=== PATIENT | female | born 1960 | race Caucasian/White ===

== ENCOUNTER → 2017-02-03 | Outpatient (CLI) | payer OTHER | END | disposition home or self-care (01) | LOC: C.LAB 22:09 | DX: Z02.83 Encounter for blood-alcohol and blood-drug test (principal) ==

== ENCOUNTER → 2017-06-24 | Outpatient (CLI) | payer OTHER ==
--- NOTE | 2017-06-24 07:26 | DIAGNOSTIC IMAGING REPORT ---
MR ANGIOGRAPHY OF THE [place] OF [place] NO CONTRAST CLINICAL HISTORY: INTRACRANIAL ANEURYSM COMPARISON STUDY: Outside report from August radiographic study performed [facility] dated 08/18/2016 A 3-D [id number] MR angiographic sequence of the [place] was performed. Both the source and projection images were reviewed. There is no flow within the right A1 segment. There is marked diminished flow within the cavernous portion of the right internal carotid artery. There is a dominant left vertebral. There is a 2.5 mm aneurysm arising from the inferior aspect of the right anterior cerebral artery. There is a 3 mm aneurysm at the origin of the left posterior communicating artery. There is an equivocal 2 mm aneurysm arising from the left posterior posterior cerebral artery. There is a 2 mm aneurysm in the region of the left middle cerebral artery bifurcation. IMPRESSION: 1. Markedly diminished flow within the cavernous portion of the right internal carotid artery 2. No flow within the right A1 segment 3. 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 3 mm aneurysm/infundibulum at the origin left posterior communicating artery 5. Equivocal 2 mm aneurysm arising from the posterior aspect of the left posterior cerebral artery 6. 2 mm aneurysm in the region the left middle cerebral artery bifurcation Electronically signed by: Vivek Gonzalez M.D. 06/24/2017 7:24 AM Dictated Date/Time: 06/24/2017 7:09 AM
== END | disposition home or self-care (01) ==
LOC: C.MRI 06:23
PROVIDERS: ATTEND Family Medicine
DX: I67.1 Cerebral aneurysm, nonruptured (principal)

== ENCOUNTER 2023-03-27 09:44 | Inpatient (IN) ==
[2023-03-27] MEDS ORDERED: SODIUM CHLORIDE 0.9% 1000ML 1,000 ML IV ONE (10:20)
[2023-03-27] MEDS ORDERED: ONDANSETRON INJ 2 MG/ML 2 ML VIAL IV STA (10:20)
[2023-03-27] MEDS ORDERED: FAMOTIDINE 20MG IV PUSH 20 MG/5 ML SYR IV STA (10:20)
[2023-03-27 11:26] LABS: Albumin Globulin Ratio 2.1 (0.9-2); Albumin Level 3.5 gm/dl (3.4-5.0); BUN Creatinine Ratio 21.9 (10-20); Bilirubin Direct 0.1 mg/dl (0-0.2); Bilirubin,Total 0.4 mg/dl (0.2-1.0); Calcium 8.3 mg/dl (8.6-10.3); Creatinine Clr Calc Pharmacy 72.1 ml/min; Est GFR (African American) 110.8 ml/min; Est GFR (Non-African American) 95.6 ml/min; Globulin 1.7 gm/dl (2.5-4.0); Hematocrit (blood only) 19.4 % (37.0-47.0); Hemoglobin 6.6 g/dl (12.0-16.0); Mean Corpuscular Volume 94.2 fL (80.0-100.0); Mean Platelet Volume 10.8 fL (9.4-12.4); Platelet Count 149 K/uL (130-400); Potassium 3.6 mmol/L (3.5-5.1); RDW Coefficient of Variation 12.4 % (11.5-14.5); Red Blood Count 2.06 M/uL (4.20-5.40); Total Protein 5.2 gm/dl (6.0-8.3); White Blood Count 3.88 K/ul (4.8-10.8)
[2023-03-27 11:36] LABS: Appearance Urine Clear (Clear); Bacteria Urine Automated Negative (Negative); Bilirubin Urine Negative (Negative); Blood Urine Negative (Negative); Color Urine Yellow; Epithelial Cell Urine Auto >30 /lpf (0-5); Glucose Urine UA Negative (Negative); Ketones Urine Trace (Negative); Leukocyte Esterase Urine 2+ (Negative); Nitrite Urine Negative (Negative); Protein Urine Negative (Negative); RBC Urine Automated 0-4 /hpf (0-4); Specific Gravity Urine 1.015 (1.000-1.030); Urobilinogen Urine Negative (Negative); pH Urine 5.5 (4.5-7.5)
[2023-03-27 11:44] LABS: Prothrombin Time 11.4 Seconds (9.0-12.0)
[2023-03-27 11:45] LABS: Basophils # (auto) 0.02 K/uL (0-0.2); Basophils % (auto) 0.5 %; Eosinophils # (auto) 0.07 K/uL (0-0.50); Eosinophils % (auto) 1.8 %; Immature Granulocytes # (auto) 0.02 K/uL (0.01-0.20); Immature Granulocytes % (auto) 0.5 %; Lymphocytes # (auto) 1.39 K/uL (1.2-3.4); Lymphocytes % (auto) 35.8 %; Monocytes # (auto) 0.31 K/uL (0.11-0.59); Neutrophils # (auto) 2.07 K/uL (1.40-6.50); Neutrophils % (auto) 53.4 %; RBC Morphology Unremarkable
[2023-03-27] MEDS ORDERED: OPTIRAY 320 100ml IV ONE (11:59)
[2023-03-27] MEDS ORDERED: SODIUM CHLORIDE 0.9% 250 ML IV PRN (12:07)
[2023-03-27] MEDS ORDERED: PANTOprazole 80 MG in DEXTROSE 5% 100 ML IV ONE (12:07)
[2023-03-27] MEDS ORDERED: PANTOPRAZOLE BOLUS/DRIP 1 EACH IV STA (12:07)
[2023-03-27 12:29] LABS: INR 1.1 (0.9-1.1); Prothrombin Time 11.7 Seconds (9.0-12.0)
--- NOTE | 2023-03-27 12:34 | CT Scan Report ---
ABDOMEN AND PELVIS CT WITH IV CONTRAST CT DOSE: 446.17 mGy.cm HISTORY: Acute generalized abdominal pain with nausea and vomiting abd pain n/v/d. melena TECHNIQUE: Multiaxial CT images of the abdomen and pelvis were performed following the IV administrat ion of 94 cc of Optiray, A dose lowering technique was utilized adhering to the principles of ALARA. COMPARISON STUDY: None. FINDINGS: The imaged inferior cardiac chambers are unremarkable. Mild dependent subsegmental bibasila r atelectasis. No pneumatosis or pneumoperitoneum. Unremarkable spleen, visualized pancreas and adren al glands. Distended gallbladder. Unremarkable liver. There are a few subcentimeter unremarkable kidn eys. No hydronephrosis. Decompressed urinary bladder with mild wall thickening. Hysterectomy. No adne xal mass lesion identified. No abdominal aortic aneurysm or lymphadenopathy. Hypodensities of the emmanuel er too small to characterize favoring cysts. Patency of the hepatic and portal veins. Colonic diverticulosis. Normal appendix. Mild circumferential wall thickening involves a few loops of small bowel in the abdominal left upper quadrant. There is adjacent inflammatory stranding with inte rloop edema. Mild wall thickening of the ascending colon. No drainable fluid collections. Mild genera lized body wall edema. Degenerative changes of the spine, pelvis and hips. IMPRESSION: 1. No bowel obstruction or pneumoperitoneum. 2. Wall thickening involves a few loops of jejunum within the left abdomen. Mild associated interloop edema with perienteric stranding. Findings are suggestive of a nonspecific enteritis. 3. Mild wall thickening of the ascending colon may be secondary to partial distention versus a concom itant mild colitis. 4. Colonic diverticulosis. 5. Additional findings as above. ACT 112: Negative or not required by law. The above report was generated using voice recognition software. It may contain grammatical, syntax o r spelling errors. Electronically signed by: Morgan Li M.D. 03/27/2023 12:33 PM
[2023-03-27] MEDS: PANTOprazole 40 MG in DEXTROSE 5% 100 ML IV SCH ×3 (13:13→23:30)
[2023-03-27 13:29] LABS: Ferritin 21.2 ng/ml (8-388)
[2023-03-27 13:34] LABS: Reticulocyte % 3.6 % (0.5-2.0); Reticulocytes # 0.07 10^6/uL (0.02-0.10)
[2023-03-27] MEDS ORDERED: ACETAMINOPHEN 1,000 MG/100 ML VIAL IV STA (13:47)
--- NOTE | 2023-03-27 14:11 | Emergency Department Note ---
Impression & Plan Acute GI bleeding, Melena, Symptomatic anemia ED Provider Note NAME: HAYLEE GODOY AGE: 62 SEX: F ARRIVES VIA: Walk-In INFORMANT: Patient ED PROVIDER(S): Brannon Rodriguez MD CHIEF COMPLAINT: n/v, black and bloody stool PLAN: Disposition: Admit MEDICAL DECISION MAKING: The patient is a pleasant 62-year-old woman with a past medical history of anxiety, cerebral aneurysms s/p neurovascular treatment who presents to the emergency department via walk-in, accompanied by her for evaluation of nausea, vomiting and diarrhea over the past 48 hours which she attributes to possible food poisoning. She denies any prior history of similar symptoms. She reports her stools appeared black but also has had red blood. She reports she feels weak and lightheaded. She denies taking any anticoagulation. She reports she does drink alcohol daily but this is limited to 2 glasses of wine has no history of withdrawal. She denies any fevers, cough congestion, chest pain or shortness of breath. On arrival the patient is uncomfortable but no acute distress, afebrile with heart in the 100s and vital signs otherwise stable. She appears clinically dry. She has mild pallor. Abdomen is nontender. Rectal exam demonstrates scant black melanotic stool but also with maroon/red blood that is Hemoccult positive. WBC 3.8, nonspecific. H/H 6.6/19.4 down from 13.9/42.3 in 2020 without more recent for comparison. INR is 1.1, within normal limits. Chemistry without metabolic acidosis. Electrolytes without significant abnormality. LFTs are unremarkable. Lipase is normal. Iron is normal. UA without convincing evidence of infection. COVID-19 RNA, ROLANDA test was negative. CT of the abdomen pelvis was performed and demonstrates wall thickening of loops of jejunum within the left abdomen with mild associated interloop edema and perienteric stranding suggestive of nonspecific enteritis. Mild thickening of the ascending colon may be secondary to partial distention versus colitis. Findings reviewed with the patient and she did consent for blood transfusion. The patient did have brief low blood pressure in the 90s/60s which was fluid responsive and otherwise the patient remained hemodynamically stable. Patient was treated with IV Pepcid in addition to Protonix bolus and drip. Case was d/w Dr. Sharma, [facility] [place] who will evaluate the patient for admission. Triage Nursing notes reviewed and agree them. Prior/outside medical records reviewed Vital Signs: reviewed Differential diagnosis: Diverticulosis, AVM, coagulopathy, colitis, inflammatory bowel disease, malig marianne, Farrah-Chapman tear, esophagitis, peptic ulcer disease, variceal bleed, gastritis, epistaxis, fissure, hemorrhoids, as well as other pathologies. ER treatment provided: See below. Diagnostics interpreted by me: ECG: NSR, 69 bpm, no ectopy, no overt ST elevation or depression. Cardiac Monitoring: An order for continuous cardiac monitoring was placed and demonstrated NSR, 69 bpm, no ectopy. Laboratory studies: See below Imaging studies: See below Consultation(s): Case was d/w Dr. Sharma, [facility] [place] who will evaluate the patient for admission. HPI: The patient is a pleasant 62-year-old woman with a past medical history of anxiety, cerebral aneurysms s/p neurovascular treatment who presents to the emergency department via walk-in, accompanied by her for evaluation of nausea, vomiting and diarrhea over the past 48 hours which she attributes to possible food poisoning. She denies any prior history of similar symptoms. She reports her stools appeared black but also has had red blood. She reports she feels weak and lightheaded. She denies taking any anticoagulation. She reports she does drink alcohol daily but this is limited to 2 glasses of wine has no history of withdrawal. She denies any fevers, cough congestion, chest pain or shortness of breath. ROS: See above HPI for pertinent positives & negatives. A total of 10 systems reviewed and were otherwise negative. VITALS:See Below PHYSICAL EXAMINATION: GENERAL: Awake, alert, uncomfortable-appearing, in no distress HENT: Normocephalic, atraumatic. Oropharynx with dry mucous membranes and otherwise unremarkable. EYES: Normal conjunctiva. Sclera non-icteric. NECK: Supple. No nuchal rigidity. FROM. No JVD. RESPIRATORY: Clear to auscultation. CARDIAC: Tachycardic rate, normal rhythm. Extremities warm and well perfused. Pulses equal. ABDOMEN: Soft, non-distended. No tenderness to palpation. No rebound or guarding. No masses. RECTAL: Rectal exam demonstrates scant black melanotic stool but also with maroon/red blood that is Hemoccult positive.. MUSCULOSKELETAL: Chest examination reveals no tenderness. The back is sy mmetrical on inspection without obvious abnormality. There is no CVA tenderness to palpation. No joint edema. LOWER EXTREMITIES: Calves are equal size bilaterally and non-tender. No edema. No discoloration. NEURO: Normal sensorium. No sensory or motor deficits noted. SKIN: Mild pallor. No rash or jaundice noted. ED COURSE: Critical Care: I have personally spent greater than 75 minutes of critical care time in the direct management of this patient. This includes bedside care, interpretation of diagnostic studies, and testing, discussion with consultants, patient, and family members, and other required patient management activities. This 75 minutes is in excess of all separately billable procedures. Brannon Rodriguez MD Past Med/Surg History Medical History (Updated 03/28/23 @ 02:33 by Brannon Rodriguez MD) Allergic conjunctivitis Brain aneurysm Family History Uncle Stroke Denies family history of Ovarian cancer Prostate cancer Diabetes Myocardial infarction Breast cancer Lung cancer Colorectal cancer Social History Smoking Status: Never smoker Second Hand Exposure: No; Do You Dip or Chew Tobacco: No; Hx Alcohol Use: No Hx Substance Use: Yes Last Used Substance: Days (ago) Last Used Substance Other:: May sometime per patient Preferred Language: Monegasque Communication Ability: Effective Visual Impairment: Diminished Hearing Ability: Normal Outpatient Program Coordinator Required: No Beliefs That Will Affect Care: None marital status: Current Living Situation: Spouse current occupational status: employed How many Children do You have: 1 Feels Safe at Home: Yes Childhood Exposure to Second-Hand Smoke: Yes caffeine: Yes Dental Care, Regularly: Yes Physical Activity Frequency: 5-6 Times per Week Seatbelt Use: always Sunscreen Use: Yes Assistive Devices: None Allergies Allergies Allergy/AdvReac Type Severity Reaction Status Date / Time gluten Allergy Intermediate Gastrointestinal Unverified 03/27/23 14:57 Upset Home Meds Home Medications Medication Instructions Recorded Confirmed aspirin 81 mg tablet 81 mg PO HS 03/27/23 03/27/23 escitalopram oxalate 10 mg tablet 10 mg PO HS 03/27/23 03/27/23 (Lexapro) Results & Data (ED) Vital Signs Vital Signs - 24 hr 03/27/23 09:47 03/27/23 10:23 03/27/23 11:00 Temperature 36.3 C L Temperature Source Temporal Artery Scan Pulse Rate 105 H 72 73 Pulse Rate from SpO2 Sensor 73 Pulse Rhythm Pulse Strength Respiratory Rate 20 16 Respiratory Effort / Characteristics Non-Labored Spontaneous Respiratory Depth Normal Blood Pressure 104/70 110/71 Blood Pressure Mean 81 84 Blood Pressure Position Pulse Oximetry 100 97 Oxygen Delivery Method Room Air Sepsis New/Unexplained Change in Mental Status N/A Sepsis Action Taken by Nursing No Action Required 03/27/23 12:30 03/27/23 13:58 03/27/23 14:06 Temperature 37 C Temperature Source Oral Pulse Rate 74 76 Pulse Rate from SpO2 Sensor Pulse Rhythm Regular Pulse Strength Normal Respiratory Rate 16 18 Respiratory Effort / Characteristics Respiratory Depth Blood Pressure 91/54 L 90/51 L Blood Pressure Mean 66 64 Blood Pressure Position Lying Pulse Oximetry 99 97 99 Oxygen Delivery Method Room Air Sepsis New/Unexplained Change in Mental Status Sepsis Action Taken by Nursing 03/27/23 14:18 03/27/23 14:33 03/27/23 15:03 Temperature 37.1 C 37.2 C 36.5 C Temperature Source Oral Oral Oral Pulse Rate 75 72 69 Pulse Rate from SpO2 Sensor Pulse Rhythm Regular Regular Pulse Strength Normal Normal Respiratory Rate 16 18 18 Respiratory Effort / Characteristics Respiratory Depth Blood Pressure 112/62 91/64 L 103/60 Blood Pressure Mean 78 73 74 Blood Pressure Position Lying Lying Pulse Oximetry 100 100 100 Oxygen Delivery Method Sepsis New/Unexplained Change in Mental Status Sepsis Action Taken by Nursing 03/27/23 15:00 03/27/23 15:01 03/27/23 15:01 Temperature Temperature Source Pulse Rate 80 74 Pulse Rate from SpO2 Sensor 72 75 Pulse Rhythm Pulse Strength Respiratory Rate 16 16 Respiratory Effort / Characteristics Respiratory Depth Blood Pressure 111/79 Blood Pressure Mean 89 Blood Pressure Position Pulse Oximetry 85 L 99 Oxygen Delivery Method Sepsis New/Unexplained Change in Mental Status Sepsis Action Taken by Nursing 03/27/23 15:04 03/27/23 15:04 Temperature Temperature Source Pulse Rate 68 Pulse Rate from SpO2 Sensor 68 Pulse Rhythm Pulse Strength Respiratory Rate 18 Respiratory Effort / Characteristics Respiratory Depth Blood Pressure 103/60 Blood Pressure Mean 74 Blood Pressure Position Pulse Oximetry 100 Oxygen Delivery Method Sepsis New/Unexplained Change in Mental Status Sepsis Action Taken by Nursing Laboratory Data Attestation: I reviewed the patient's lab results. 03/27/23 10:25 03/27/23 10:25 Lab Results 03/27/23 03/27/23 03/27/23 Range/Units 10:25 10:25 10:25 WBC 3.88 L (4.8-10.8) K/ul RBC 2.06 L (4.20-5.40) M/uL Hgb 6.6 L* (12.0-16.0) g/dl Hct 19.4 L* (37.0-47.0) % MCV 94.2 (80.0-100.0) fL MCH 32.0 (25.0-34.0) pg MCHC 34.0 (32.0-36.0) g/dL RDW Std Deviation 43.0 (36.4-46.3) fL RDW Coeff of Bandar 12.4 (11.5-14.5) % Plt Count 149 (130-400) K/uL MPV 10.8 (9.4-12.4) fL Immature Gran % (Auto) 0.5 % Neut % (Auto) 53.4 % Lymph % (Auto) 35.8 % [place] % (Auto) 8.0 % Eos % (Auto) 1.8 % Baso % (Auto) 0.5 % Reticulocyte % (Auto) (0.5-2.0) % Neut # (Auto) 2.07 (1.40-6.50) K/uL Lymph # (Auto) 1.39 (1.2-3.4) K/uL [place] # (Auto) 0.31 (0.11-0.59) K/uL Eos # (Auto) 0.07 (0-0.50) K/uL Baso # (Auto) 0.02 (0-0.2) K/uL Reticulocyte # (0.02-0.10) 10^6/uL Immature Gran # (Auto) 0.02 (0.01-0.20) K/uL RBC Morphology Unremarkable PT 11.4 (9.0-12.0) Seconds INR 1.0 (0.9-1.1) APTT (21.0-31.0) Seconds PTT Ratio Sodium 137 (136-145) mmol/L Potassium 3.6 (3.5-5.1) mmol/L Chloride 104 (98-107) mmol/L Carbon Dioxide 27 (21-32) mmol/L Anion Gap 6 (3-11) BUN 14 (6-23) mg/dl Creatinine 0.64 (0.6-1.2) mg/dl Est Cr Clr Drug Dosing 72.1 ml/min Est GFR ( Amer) 110.8 ml/min Est GFR (Non-Af Amer) 95.6 ml/min BUN/Creatinine Ratio 21.9 H (10-20) Glucose 154 H (70-99(Fasting)) mg/dl Calcium 8.3 L (8.6-10.3) mg/dl Iron 82 (35-150) mcg/dl Unsaturated IBC 238 (155-355) mcg/dl Transferrin 237 (200-360) mg/dl Ferritin 21.2 (8-388) ng/ml Total Bilirubin 0.4 (0.2-1.0) mg/dl Direct Bilirubin 0.1 (0-0.2) mg/dl AST 16 (13-39) U/L ALT 12 (7-52) U/L Alkaline Phosphatase 26 L (34-104) U/L Total Protein 5.2 L (6.0-8.3) gm/dl Albumin 3.5 (3.4-5.0) gm/dl Globulin 1.7 L (2.5-4.0) gm/dl Albumin/Globulin Ratio 2.1 H (0.9-2) Lipase 14 (11-82) U/L Vitamin B12 (180-914) pg/ml Folate (>5.38) ng/ml Urine Color Urine Appearance (Clear) Urine pH (4.5-7.5) Ur Specific [place] (1.000-1.030) Urine Protein (Negative) Urine Glucose (UA) (Negative) Urine Ketones (Negative) Urine Blood (Negative) Urine Nitrite (Negative) Urine Bilirubin (Negative) Urine Urobilinogen (Negative) Ur Leukocyte Esterase (Negative) Urine WBC (Auto) (0-5) /hpf Urine RBC (Auto) (0-4) /hpf U Hyaline Cast (Auto) (0-5) /lpf U Epithel Cells (Auto) (0-5) /lpf Urine Bacteria (Auto) (Negative) Ethyl Alcohol mg/dL (<10.0) mg/dl SARS-CoV-2, RNA, NAAT (NEGATIVE) Blood Type Antibody Screen Crossmatch 03/27/23 03/27/23 03/27/23 Range/Units 10:25 10:25 10:29 WBC (4.8-10.8) K/ul RBC (4.20-5.40) M/uL Hgb (12.0-16.0) g/dl Hct (37.0-47.0) % MCV (80.0-100.0) fL MCH (25.0-34.0) pg MCHC (32.0-36.0) g/dL RDW Std Deviation (36.4-46.3) fL RDW Coeff of Bandar (11.5-14.5) % Plt Count (130-400) K/uL MPV (9.4-12.4) fL Immature Gran % (Auto) % Neut % (Auto) % Lymph % (Auto) % [place] % (Auto) % Eos % (Auto) % Baso % (Auto) % Reticulocyte % (Auto) 3.6 H (0.5-2.0) % Neut # (Auto) (1.40-6.50) K/uL Lymph # (Auto) (1.2-3.4) K/uL [place] # (Auto) (0.11-0.59) K/uL Eos # (Auto) (0-0.50) K/uL Baso # (Auto) (0-0.2) K/uL Reticulocyte # 0.07 (0.02-0.10) 10^6/uL Immature Gran # (Auto) (0.01-0.20) K/uL RBC Morphology PT (9.0-12.0) Seconds INR (0.9-1.1) APTT (21.0-31.0) Seconds PTT Ratio Sodium (136-145) mmol/L Potassium (3.5-5.1) mmol/L Chloride (98-107) mmol/L Carbon Dioxide (21-32) mmol/L Anion Gap (3-11) BUN (6-23) mg/dl Creatinine (0.6-1.2) mg/dl Est Cr Clr Drug Dosing ml/min Est GFR ( Amer) ml/min Est GFR (Non-Af Amer) ml/min BUN/Creatinine Ratio (10-20) Glucose (70-99(Fasting)) mg/dl Calcium (8.6-10.3) mg/dl Iron (35-150) mcg/dl Unsaturated IBC (155-355) mcg/dl Transferrin (200-360) mg/dl Ferritin (8-388) ng/ml Total Bilirubin (0.2-1.0) mg/dl Direct Bilirubin (0-0.2) mg/dl AST (13-39) U/L ALT (7-52) U/L Alkaline Phosphatase (34-104) U/L Total Protein (6.0-8.3) gm/dl Albumin (3.4-5.0) gm/dl Globulin (2.5-4.0) gm/dl Albumin/Globulin Ratio (0.9-2) Lipase (11-82) U/L Vitamin B12 606 (180-914) pg/ml Folate 9.48 (>5.38) ng/ml Urine Color Urine Appearance (Clear) Urine pH (4.5-7.5) Ur Specific [place] (1.000-1.030) Urine Protein (Negative) Urine Glucose (UA) (Negative) Urine Ketones (Negative) Urine Blood (Negative) Urine Nitrite (Negative) Urine Bilirubin (Negative) Urine Urobilinogen (Negative) Ur Leukocyte Esterase (Negative) Urine WBC (Auto) (0-5) /hpf Urine RBC (Auto) (0-4) /hpf U Hyaline Cast (Auto) (0-5) /lpf U Epithel Cells (Auto) (0-5) /lpf Urine Bacteria (Auto) (Negative) Ethyl Alcohol mg/dL (<10.0) mg/dl SARS-CoV-2, RNA, NAAT NEGATIVE (NEGATIVE) Blood Type Antibody Screen Crossmatch 03/27/23 03/27/23 03/27/23 Range/Units 11:15 11:39 11:39 WBC (4.8-10.8) K/ul RBC (4.20-5.40) M/uL Hgb (12.0-16.0) g/dl Hct (37.0-47.0) % MCV (80.0-100.0) fL MCH (25.0-34.0) pg MCHC (32.0-36.0) g/dL RDW Std Deviation (36.4-46.3) fL RDW Coeff of Bandar (11.5-14.5) % Plt Count (130-400) K/uL MPV (9.4-12.4) fL Immature Gran % (Auto) % Neut % (Auto) % Lymph % (Auto) % [place] % (Auto) % Eos % (Auto) % Baso % (Auto) % Reticulocyte % (Auto) (0.5-2.0) % Neut # (Auto) (1.40-6.50) K/uL Lymph # (Auto) (1.2-3.4) K/uL [place] # (Auto) (0.11-0.59) K/uL Eos # (Auto) (0-0.50) K/uL Baso # (Auto) (0-0.2) K/uL Reticulocyte # (0.02-0.10) 10^6/uL Immature Gran # (Auto) (0.01-0.20) K/uL RBC Morphology PT 11.7 (9.0-12.0) Seconds INR 1.1 (0.9-1.1) APTT 23.9 (21.0-31.0) Seconds PTT Ratio 0.8 Sodium (136-145) mmol/L Potassium (3.5-5.1) mmol/L Chloride (98-107) mmol/L Carbon Dioxide (21-32) mmol/L Anion Gap (3-11) BUN (6-23) mg/dl Creatinine (0.6-1.2) mg/dl Est Cr Clr Drug Dosing ml/min Est GFR ( Amer) ml/min Est GFR (Non-Af Amer) ml/min BUN/Creatinine Ratio (10-20) Glucose (70-99(Fasting)) mg/dl Calcium (8.6-10.3) mg/dl Iron (35-150) mcg/dl Unsaturated IBC (155-355) mcg/dl Transferrin (200-360) mg/dl Ferritin (8-388) ng/ml Total Bilirubin (0.2-1.0) mg/dl Direct Bilirubin (0-0.2) mg/dl AST (13-39) U/L ALT (7-52) U/L Alkaline Phosphatase (34-104) U/L Total Protein (6.0-8.3) gm/dl Albumin (3.4-5.0) gm/dl Globulin (2.5-4.0) gm/dl Albumin/Globulin Ratio (0.9-2) Lipase (11-82) U/L Vitamin B12 (180-914) pg/ml Folate (>5.38) ng/ml Urine Color Yellow Urine Appearance Clear (Clear) Urine pH 5.5 (4.5-7.5) Ur Specific [place] 1.015 (1.000-1.030) Urine Protein Negative (Negative) Urine Glucose (UA) Negative (Negative) Urine Ketones Trace H (Negative) Urine Blood Negative (Negative) Urine Nitrite Negative (Negative) Urine Bilirubin Negative (Negative) Urine Urobilinogen Negative (Negative) Ur Leukocyte Esterase 2+ H (Negative) Urine WBC (Auto) 1-5 (0-5) /hpf Urine RBC (Auto) 0-4 (0-4) /hpf U Hyaline Cast (Auto) 1-5 (0-5) /lpf U Epithel Cells (Auto) >30 H (0-5) /lpf Urine Bacteria (Auto) Negative (Negative) Ethyl Alcohol mg/dL < 10.0 (<10.0) mg/dl SARS-CoV-2, RNA, NAAT (NEGATIVE) Blood Type Antibody Screen Crossmatch 03/27/23 Range/Units 11:39 WBC (4.8-10.8) K/ul RBC (4.20-5.40) M/uL Hgb (12.0-16.0) g/dl Hct (37.0-47.0) % MCV (80.0-100.0) fL MCH (25.0-34.0) pg MCHC (32.0-36.0) g/dL RDW Std Deviation (36.4-46.3) fL RDW Coeff of Bandar (11.5-14.5) % Plt Count (130-400) K/uL MPV (9.4-12.4) fL Immature Gran % (Auto) % Neut % (Auto) % Lymph % (Auto) % [place] % (Auto) % Eos % (Auto) % Baso % (Auto) % Reticulocyte % (Auto) (0.5-2.0) % Neut # (Auto) (1.40-6.50) K/uL Lymph # (Auto) (1.2-3.4) K/uL [place] # (Auto) (0.11-0.59) K/uL Eos # (Auto) (0-0.50) K/uL Baso # (Auto) (0-0.2) K/uL Reticulocyte # (0.02-0.10) 10^6/uL Immature Gran # (Auto) (0.01-0.20) K/uL RBC Morphology PT (9.0-12.0) Seconds INR (0.9-1.1) APTT (21.0-31.0) Seconds PTT Ratio Sodium (136-145) mmol/L Potassium (3.5-5.1) mmol/L Chloride (98-107) mmol/L Carbon Dioxide (21-32) mmol/L Anion Gap (3-11) BUN (6-23) mg/dl Creatinine (0.6-1.2) mg/dl Est Cr Clr Drug Dosing ml/min Est GFR ( Amer) ml/min Est GFR (Non-Af Amer) ml/min BUN/Creatinine Ratio (10-20) Glucose (70-99(Fasting)) mg/dl Calcium (8.6-10.3) mg/dl Iron (35-150) mcg/dl Unsaturated IBC (155-355) mcg/dl Transferrin (200-360) mg/dl Ferritin (8-388) ng/ml Total Bilirubin (0.2-1.0) mg/dl Direct Bilirubin (0-0.2) mg/dl AST (13-39) U/L ALT (7-52) U/L Alkaline Phosphatase (34-104) U/L Total Protein (6.0-8.3) gm/dl Albumin (3.4-5.0) gm/dl Globulin (2.5-4.0) gm/dl Albumin/Globulin Ratio (0.9-2) Lipase (11-82) U/L Vitamin B12 (180-914) pg/ml Folate (>5.38) ng/ml Urine Color Urine Appearance (Clear) Urine pH (4.5-7.5) Ur Specific [place] (1.000-1.030) Urine Protein (Negative) Urine Glucose (UA) (Negative) Urine Ketones (Negative) Urine Blood (Negative) Urine Nitrite (Negative) Urine Bilirubin (Negative) Urine Urobilinogen (Negative) Ur Leukocyte Esterase (Negative) Urine WBC (Auto) (0-5) /hpf Urine RBC (Auto) (0-4) /hpf U Hyaline Cast (Auto) (0-5) /lpf U Epithel Cells (Auto) (0-5) /lpf Urine Bacteria (Auto) (Negative) Ethyl Alcohol mg/dL (<10.0) mg/dl SARS-CoV-2, RNA, NAAT (NEGATIVE) Blood Type O Positive Antibody Screen NEGATIVE Crossmatch See Detail Administered Medications Escitalopram Oxalate (Escitalopram Oxalate 10 Mg Tab) 10 mg PO HS SERGE Stop: 04/26/23 20:59 Last Admin: 03/27/23 20:49 Dose: 10 mg Documented By: ANYA Pantoprazole Sodium 40 mg/ (Dextrose) 100 mls @ 20 mls/hr IV Q5H SERGE Stop: 04/26/23 12:29 Last Admin: 03/27/23 23:30 Dose: 8 mg/hr, 20 mls/hr Documented By: Infusion: 03/27/23 23:07 Dose: 8 mg/hr, 20 mls/hr Documented By: Admin: 03/27/23 18:07 Dose: 8 mg/hr, 20 mls/hr Documented By: Infusion: 03/27/23 17:46 Dose: 0 mg/hr, 0 mls/hr Documented By: Admin: 03/27/23 13:13 Dose: 8 mg/hr, 20 mls/hr Documented By: RIZWAN Lactated Ringer's (Lr) 1,000 mls @ 125 mls/hr IV .Q8H SERGE Stop: 04/26/23 19:59 Last Admin: 03/27/23 20:49 Dose: 125 mls/hr Documented By: ANYA Melatonin (Melatonin 3 Mg Tab) 3 mg PO HS PRN PRN Reason: Sleep Stop: 04/26/23 21:04 Last Admin: 03/27/23 21:38 Dose: 3 mg Documented By: ANYA Discontinued Medications Sodium Chloride (Nss 1000ml) 1,000 mls @ 999 mls/hr IV .Q1H1M ONE Stop: 03/27/23 11:20 Last Infusion: 03/27/23 12:48 Dose: 0 mls/hr Documented By: Admin: 03/27/23 10:31 Dose: 999 mls/hr Documented By: RIZWAN Famotidine (Pepcid 20mg Iv Push) 20 mg in 5 mls @ 2.5 mls/min IV NOW STA Stop: 03/27/23 10:21 Last Admin: 03/27/23 10:31 Dose: 2.5 mls/min Documented By: RIZWAN Pantoprazole Sodium 80 mg/ (Dextrose) 120 mls @ 400 mls/hr IV NOW ONE Stop: 03/27/23 12:24 Last Infusion: 03/27/23 16:02 Dose: 0 mls/hr Documented By: Admin: 03/27/23 12:48 Dose: 400 mls/hr Documented By: RIZWAN Acetaminophen (Ofirmev) 1,000 mg in 100 mls @ 400 mls/hr IV NOW STA Stop: 03/27/23 14:01 Last Infusion: 03/27/23 16:02 Dose: 0 mls/hr Documented By: Admin: 03/27/23 13:54 Dose: 400 mls/hr Documented By: DAKOTA Ioversol (Optiray 320 100ml) 94 ml IV ONCE ONE Stop: 03/27/23 12:00 Last Admin: 03/27/23 11:59 Dose: 94 ml Documented By: CESILIA Ondansetron HCl (Ondansetron Inj 2 Mg/Ml 2 Ml Vial) 4 mg IV NOW STA Stop: 03/27/23 10:21 Last Admin: 03/27/23 10:31 Dose: 4 mg Documented By: RIZWAN Imaging Data Radiologist's Impression: Abdomen/Pelvis CT 03/27/23 10:[address] WITH IV CONTRAST CT DOSE: 446.17 mGy.cm HISTORY: Acute generalized abdominal pain with nausea and vomiting abd pain n/v/d. melena TECHNIQUE: Multiaxial CT images of the abdomen and pelvis were performed following the IV administration of 94 cc of Optiray, A dose lowering technique was utilized adhering to the principles of ALARA. COMPARISON STUDY: None. FINDINGS: The imaged inferior cardiac chambers are unremarkable. Mild dependent subsegmental bibasilar atelectasis. No pneumatosis or pneumoperitoneum. Un remarkable spleen, visualized pancreas and adrenal glands. Distended gallbladder. Unremarkable liver. There are a few subcentimeter unremarkable kidneys. No hydronephrosis. Decompressed urinary bladder with mild wall thickening. Hysterectomy. No adnexal mass lesion identified. No abdominal aortic aneurysm or lymphadenopathy. Hypodensities of the liver too small to characterize favoring cysts. Patency of the hepatic and portal veins. Colonic diverticulosis. Normal appendix. Mild circumferential wall thickening involves a few loops of small bowel in the abdominal left upper quadrant. There is adjacent inflammatory stranding with interloop edema. Mild wall thickening of the ascending colon. No drainable fluid collections. Mild generalized body wall edema. Degenerative changes of the spine, pelvis and hips. IMPRESSION: 1. No bowel obstruction or pneumoperitoneum. 2. Wall thickening involves a few loops of jejunum within the left abdomen. Mild associated interloop edema with perienteric stranding. Findings are suggestive of a nonspecific enteritis. 3. Mild wall thickening of the ascending colon may be secondary to partial distention versus a concomitant mild colitis. 4. Colonic diverticulosis. 5. Additional findings as above. ACT 112: Negative or not required by law. The above report was generated using voice recognition software. It may contain grammatical, syntax or spelling errors. Electronically signed by: Morgan Li M.D. 03/27/2023 12:33 PM Discharge Plan Visit Data Chief Complaint: Nausea Stated Complaint: NAUSEA, VOMITING, PASSING BLOOD, ED Provider: Brannon Rodriguez Discharge Problem: Acute GI bleeding, Melena, Symptomatic anemia Patient Disposition: Admitted As Inpatient Discharge Instructions Interventions: ED Discharge Assessment Last Done: 03/27/23 19:01
--- NOTE | 2023-03-27 15:14 | History & Physical Report ---
Date of Service March 27, 2023 Assessment & Plan (1) Acute GI bleeding: Plan: FOB positive in the ER with associated anemia Pantoprazole 80mg IV bolus and drip NPO Consult gastroenterology Stool PCR and c. diff testing pending (2) Acute blood loss anemia: Plan: Hgb 6.6, previously 13.9 in 2019 Transfuse 2 units of blood Repeat H&H q6h following blood transfusions Plan VTE Prophylaxis - SCD Diet - NPO Disposition - admit to PCU Admission and Anticipated Discharge Date Admission Date: March 27, 2023 History of Present Illness Chief Complaint: Melena Primary Care Provider: Mamadou Welsh MD Bhargavi Kim is a 62 year old female who presents to the ER with melena and bright red blood in stool. This start on Thursday after eating with associated lightheadedness. Ongoing mix of blood but mostly tarry stool since then. No chest pain or shortness of breath. No prior GI bleed in the past. Takes an aspirin daily for history of aneurysms. No NSAID use. No history of heartburn, reflux or gastritis. No prior colonoscopy or EGD. Prior Cologuard was negative. Allergies Allergy/AdvReac Type Severity Reaction Status Date / Time gluten Allergy Intermediate Gastrointestinal Unverified 03/27/23 14:57 Upset Home Medications Medication Instructions Recorded Confirmed Type aspirin 81 mg tablet 81 mg PO HS 03/27/23 03/27/23 History escitalopram oxalate 10 mg tablet 10 mg PO HS 03/27/23 03/27/23 History (Lexapro) Past Med/Surg History Medical History (Updated 03/27/23 @ 15:34 by Cristhian Sharma MD) Allergic conjunctivitis Brain aneurysm Family History (Updated 12/29/22 @ 13:01 by Gena Morejon LPN) Uncle Stroke Denies family history of Ovarian cancer Prostate cancer Diabetes Myocardial infarction Breast cancer Lung cancer Colorectal cancer Social History (Updated 12/29/22 @ 13:03 by Gena Morejon LPN) Smoking Status: Never smoker Second Hand Exposure: No; Do You Dip or Chew Tobacco: No; Hx Alcohol Use: Yes Hx Substance Use: No Preferred Language: Romansh Communication Ability: Effective Visual Impairment: Diminished Hearing Ability: Normal marital status: Current Living Situation: Spouse current occupational status: employed How many Children do You have: 1 Feels Safe at Home: Yes Childhood Exposure to Second-Hand Smoke: Yes caffeine: Yes Dental Care, Regularly: Yes Physical Activity Frequency: 5-6 Times per Week Seatbelt Use: always Sunscreen Use: Yes Assistive Devices: Glasses Review of Systems Review of Systems: All systems reviewed & are unremarkable except as noted in HPI & below Physical Exam Constitutional: WD/WN, vitals as above Respiratory: normal respiratory effort, lungs clear to auscultation Cardiovascular: RRR, no murmur, no edema Extremities: normal capillary refill Gastrointestinal (Abdomen): normal bowel sounds, soft, nontender, no hepatosplenomegaly Musculoskeletal: no cyanosis or clubbing, extremities motor strength 5/5 Skin: no rashes, warm and dry Neurologic: moves all extremities and awake; not confused Psychiatric: A+Ox3, euthymic affect Results & Data Results & Data Vital Signs (Past 12 Hours) Vital Signs Temp Pulse Resp BP Pulse Ox O2 Del Method 03/27/23 15:03 36.5 C 69 18 103/60 100 03/27/23 14:33 37.2 C 72 18 91/64 L 100 03/27/23 14:18 37.1 C 75 16 112/62 100 03/27/23 14:06 99 Room Air 03/27/23 13:58 37 C 76 18 90/51 L 97 03/27/23 12:30 74 16 91/54 L 99 03/27/23 11:00 73 16 110/71 97 03/27/23 10:23 72 03/27/23 09:47 36.3 C L 105 H 20 104/70 100 Room Air Laboratory Results Abnormal lab results 03/27/23 03/27/23 03/27/23 Range/Units 10:25 10:25 10:25 WBC 3.88 L (4.8-10.8) K/ul RBC 2.06 L (4.20-5.40) M/uL Hgb 6.6 L* (12.0-16.0) g/dl Hct 19.4 L* (37.0-47.0) % Reticulocyte % (Auto) 3.6 H (0.5-2.0) % BUN/Creatinine Ratio 21.9 H (10-20) Glucose 154 H (70-99(Fasting)) mg/dl Calcium 8.3 L (8.6-10.3) mg/dl Alkaline Phosphatase 26 L (34-104) U/L Total Protein 5.2 L (6.0-8.3) gm/dl Globulin 1.7 L (2.5-4.0) gm/dl Albumin/Globulin Ratio 2.1 H (0.9-2) Urine Ketones (Negative) Ur Leukocyte Esterase (Negative) U Epithel Cells (Auto) (0-5) /lpf Crossmatch 03/27/23 03/27/23 Range/Units 11:15 11:39 WBC (4.8-10.8) K/ul RBC (4.20-5.40) M/uL Hgb (12.0-16.0) g/dl Hct (37.0-47.0) % Reticulocyte % (Auto) (0.5-2.0) % BUN/Creatinine Ratio (10-20) Glucose (70-99(Fasting)) mg/dl Calcium (8.6-10.3) mg/dl Alkaline Phosphatase (34-104) U/L Total Protein (6.0-8.3) gm/dl Globulin (2.5-4.0) gm/dl Albumin/Globulin Ratio (0.9-2) Urine Ketones Trace H (Negative) Ur Leukocyte Esterase 2+ H (Negative) U Epithel Cells (Auto) >30 H (0-5) /lpf Crossmatch See Detail Diagnostic Findings ABDOMEN AND PELVIS CT WITH IV CONTRAST CT DOSE: 446.17 mGy.cm HISTORY: Acute generalized abdominal pain with nausea and vomiting abd pain n/v/d. melena TECHNIQUE: Multiaxial CT images of the abdomen and pelvis were performed following the IV administration of 94 cc of Optiray, A dose lowering technique was utilized adhering to the principles of ALARA. COMPARISON STUDY: None. FINDINGS: The imaged inferior cardiac chambers are unremarkable. Mild dependent subsegmental bibasilar atelectasis. No pneumatosis or pneumoperitoneum. Unremarkable spleen, visualized pancreas and adrenal glands. Distended gallbladder. Unremarkable liver. There are a few subcentimeter unremarkable kidneys. No hydronephrosis. Decompressed urinary bladder with mild wall thickening. Hysterectomy. No adnexal mass lesion identified. No abdominal aortic aneurysm or lymphadenopathy. Hypodensities of the liver too small to characterize favoring cysts. Patency of the hepatic and portal veins. Colonic diverticulosis. Normal appendix. Mild circumferential wall thickening involves a few loops of small bowel in the abdominal left upper quadrant. There is adjacent inflammatory stranding with interloop edema. Mild wall thickening of the ascending colon. No drainable fluid collections. Mild generalized body wall edema. Degenerative changes of the spine, pelvis and hips. IMPRESSION: 1. No bowel obstruction or pneumoperitoneum. 2. Wall thickening involves a few loops of jejunum within the left abdomen. Mild associated interloop edema with perienteric stranding. Findings are suggestive of a nonspecific enteritis. 3. Mild wall thickening of the ascending colon may be secondary to partial distention versus a concomitant mild colitis. 4. Colonic diverticulosis. 5. Additional findings as above. Medications Administered ER Medications Given: NSS 1L bolus Famotidine 20mg IV Ondansetron 4mg IV Pantoprazole 80mg bolus and 8mg/hr drip Acetaminophen 1000mg IV ECG Rate (beats per minute): 69 Rhythm: normal sinus Findings: no acute ischemic change Comparison ECG Date: no prior available Code Status & VTE Plan Code Status Full VTE Prophylaxis Plan VTE Prophylaxis will be ordered: Yes PG Care Time/CCT Total # of Minutes Spent Total Time Spent with Patient: Total time spent is greater than 50% in coordination of care (as documented) at patient's floor/unit and/or counseling patient: Coding Level of Care Code 82638 INT INP/OBS CARE 2MIN Diagnoses Acute GI bleeding K92.2 Acute blood loss anemia D62
[2023-03-27 18:55] LABS: Partial Thromboplastin Ratio 0.8; Partial Thromboplastin Time 23.9 Seconds (21.0-31.0)
[2023-03-27] MEDS ORDERED: ONDANSETRON INJ 2 MG/ML 2 ML VIAL IV PRN (19:01)
[2023-03-27] MEDS: LACTATED RINGER'S 1,000 ML IV SCH (20:49)
[2023-03-27] MEDS ORDERED: ESCITALOPRAM OXALATE 10 MG TAB PO SCH (21:00)
[2023-03-27] MEDS ORDERED: MELATONIN 3 MG TAB PO PRN (21:05)
[2023-03-27 21:52] LABS: Hematocrit (blood only) 23.1 % (37.0-47.0); Hemoglobin 7.8 g/dl (12.0-16.0)
[2023-03-28] MEDS ORDERED: SODIUM CHLORIDE 0.9% 250 ML IV PRN ×2 (01:03→03:22)
[2023-03-28 01:31] LABS: Hematocrit (blood only) 20.9 % (37.0-47.0); Hemoglobin 7.1 g/dl (12.0-16.0)
[2023-03-28] MEDS ORDERED: hydrOXYzine HCl 25 MG TAB PO PRN (03:23)
[2023-03-28] MEDS: ACETAMINOPHEN 1,000 MG/100 ML VIAL IV PRN ×2 (03:33→17:48)
[2023-03-28] MEDS: LACTATED RINGER'S 1,000 ML IV SCH (03:38)
[2023-03-28] MEDS: PANTOprazole 40 MG in DEXTROSE 5% 100 ML IV SCH ×3 (03:38→17:45)
--- NOTE | 2023-03-28 08:40 | Anesthesiology Consultation ---
Date of Service March 28, 2023 Assessment & Plan Chart Review Chart Review: Acceptable Risk for Surgery and Patient NOT seen in Pre Admission Testing Consults Requested none ASA [id number] Proposed Anesthesia Anesthesia Type: General History Surgery Operation Date: 03/28/23 08:35 Proposed Procedures p Esophagogastroduodenoscopy - Anil Wakefield MD Height/Weight Height: 5 ft 2 in Weight: 56.3 kg Allergies Allergy/AdvReac Type Severity Reaction Status Date / Time gluten Allergy Intermediate Gastrointestinal Unverified 03/27/23 14:57 Upset Medications Home Medications Medication Instructions Recorded Confirmed Last Taken aspirin 81 mg tablet 81 mg PO HS 03/27/23 03/27/23 03/26/23 escitalopram oxalate 10 mg tablet 10 mg PO HS 03/27/23 03/27/23 03/26/23 (Lexapro) Active Medications Generic Name Dose Route Start Last Admin Trade Name Freq PRN Reason Stop Dose Admin Escitalopram Oxalate 10 mg 03/27/23 21:00 03/27/23 20:49 Escitalopram Oxalate 10 Mg Tab PO 04/26/23 20:59 10 mg HS SERGE Administration Pantoprazole Sodium 40 mg/ 100 mls @ 20 mls/hr 03/27/23 12:30 03/28/23 03:38 Dextrose IV 04/26/23 12:29 8 mg/hr Q5H SERGE 20 mls/hr Administration 8 MG/HR Lactated Ringer's 1,000 mls @ 125 mls/hr 03/27/23 20:00 03/28/23 03:38 Lr IV 04/26/23 19:59 125 mls/hr .Q8H SERGE Administration Acetaminophen 1,000 mg in 100 mls @ 400 mls/hr 03/28/23 03:22 03/28/23 03:48 Ofirmev IV 03/31/23 03:21 Infused Q8H PRN Infusion pain or fever Melatonin 3 mg 03/27/23 21:05 03/27/23 21:38 Melatonin 3 Mg Tab PO 04/26/23 21:04 3 mg HS PRN Administration Sleep Ondansetron HCl 4 mg 03/27/23 19:01 03/28/23 03:16 Ondansetron Inj 2 Mg/Ml 2 Ml Vial IV 04/26/23 19:00 4 mg Q6H PRN Administration Nausea Past Medical History Medical History Allergic conjunctivitis Brain aneurysm Exercise / Class Metabolic Activity II 4-5 Yardwork/Stairs/Walk up hill Past Family History Family History Uncle Stroke Denies family history of Ovarian cancer Prostate cancer Diabetes Myocardial infarction Breast cancer Lung cancer Colorectal cancer Past Surgical History cerebral aneurysm coiling Past Anesthesia History No Hx of Anesthesia Complications and No Family Hx of Anesthesia Complications History of PONV No Hx of PONV and No Hx of Motion Sickness Social History Smoking Status: Never smoker Do You Dip or Chew Tobacco: No Hx Alcohol Use: Yes Alcohol type: wine alcohol intake frequency: 0-2 drinks per day Hx Substance Use: Yes substance use type: marijuana Last Used Substance: Days (ago) Last Used Substance Other:: May sometime per patient Physical Exam Vital Signs Last Vital Signs Temp 36.7 C 03/28/23 06:23 Pulse 73 03/28/23 07:18 Resp 17 03/28/23 07:18 BP 105/58 L 03/28/23 07:18 Pulse Ox 96 03/28/23 06:23 O2 Del Method Room Air 03/27/23 22:38 Testing Laboratory Results 03/28/23 00:44 03/27/23 10:25 PT 11.7 Seconds (9.0-12.0) 03/27/23 11:39 INR 1.1 (0.9-1.1) 03/27/23 11:39 APTT 23.9 Seconds (21.0-31.0) 03/27/23 11:39 Urine Color Yellow 03/27/23 11:15 Urine Appearance Clear (Clear) 03/27/23 11:15 Urine pH 5.5 (4.5-7.5) 03/27/23 11:15 Ur Specific [place] 1.015 (1.000-1.030) 03/27/23 11:15 Urine Protein Negative (Negative) 03/27/23 11:15 Urine Glucose (UA) Negative (Negative) 03/27/23 11:15 Urine Ketones Trace (Negative) H 03/27/23 11:15 Urine Nitrite Negative (Negative) 03/27/23 11:15 Ur Leukocyte Esterase 2+ (Negative) H 03/27/23 11:15 Urine WBC (Auto) 1-5 /hpf (0-5) 03/27/23 11:15 Urine RBC (Auto) 0-4 /hpf (0-4) 03/27/23 11:15 U Hyaline Cast (Auto) 1-5 /lpf (0-5) 03/27/23 11:15 U Epithel Cells (Auto) >30 /lpf (0-5) H 03/27/23 11:15 Urine Bacteria (Auto) Negative (Negative) 03/27/23 11:15 Blood Type O Positive 03/27/23 11:39 Antibody Screen NEGATIVE 03/27/23 11:39 Electrocardiogram Date: 03/27/23 Findings: + NSR @ (@ 22)
--- NOTE | 2023-03-28 08:54 | Gastrointestinal Consultation ---
Date of Consultation March 28, 2023 Assessment & Plan (1) Acute GI bleeding: Presentation over several days without hemodynamic changes and no obvious melena self to consider lower GI bleeding as well as small bowel source. She did have a CT scan performed that showed thickening in the ascending colon consistent with colitis. Certainly foodborne illness and/or infectious etiology may be possibly, however you do not usually see this profound anemia with that. Agree with IV PPI infusion plan for EGD today to exclude upper GI etiologies. If that is normal we will pursue CTA CTA is positive for distal bleed obviously will need admission radiology, if this is not an upper GI bleed then considerations will need to be made upon next step whether it be colonoscopy, observation, or transfer for IR therapies. Several studies to look that lower GI bleeding and urgent endoscopy have all been inferior to other modalities of therapy both on randomized controlled as well as meta-analysis. Further recommendations to follow after EGD today. 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 She went to the bathroom at work on Thursday and had a tuan/ dark bowel movement. This continued on intermittent periods over Thursday and until finally she presented to the emergency room yesterday for she has had lightheadedness and fatigue as well as abdominal cramping but no tuan pain, she does admit on and off feverish type feelings, no nausea and/or vomiting. She describes the stool as being maroon or looking as old menstrual blood. On presentation here she has been hemodynamically stable with pressures ranging from 90 up to 125, tachycardia mentation has been intact and she is able to get herself up to the bedside. She did have several bowel movements overnight, hemoglobin on presentation was less than 7 has had 2 units of blood and it ovidio to 7.8 after bleeding continued blood was being transfused with no repeat hemoglobin as of yet. She denies any recent NSAIDs, other risk factors for GI bleeding. She does take an aspirin a day, has had a history of aneurysmal coiling's but otherwise is in a good state of health. She has no evidence of any liver disease She has been admitted to the hospital started on PPI drip and looks tired but otherwise is in no distress. Allergies Allergy/AdvReac Type Severity Reaction Status Date / Time gluten Allergy Intermediate Gastrointestinal Unverified 03/27/23 14:57 Upset Home Medications Medication Instructions Recorded Confirmed Type aspirin 81 mg tablet 81 mg PO HS 03/27/23 03/27/23 History escitalopram oxalate 10 mg tablet 10 mg PO HS 03/27/23 03/27/23 History (Lexapro) Patient History Medical History Allergic conjunctivitis Brain aneurysm Family History Uncle Stroke Denies family history of Ovarian cancer Prostate cancer Diabetes Myocardial infarction Breast cancer Lung cancer Colorectal cancer Social History Smoking Status: Never smoker Second Hand Exposure: No; Do You Dip or Chew Tobacco: No; Hx Alcohol Use: Yes Alcohol type: wine Hx Substance Use: Yes Last Used Substance: Days (ago) Last Used Substance Other:: May sometime per patient Preferred Language: [place] Communication Ability: Effective Visual Impairment: Diminished Hearing Ability: Normal Dry Cleaning Attendant Required: No Beliefs That Will Affect Care: None marital status: Current Living Situation: Spouse current occupational status: employed How many Children do You have: 1 Feels Safe at Home: Yes Childhood Exposure to Second-Hand Smoke: Yes caffeine: Yes Dental Care, Regularly: Yes Physical Activity Frequency: 5-6 Times per Week Seatbelt Use: always Sunscreen Use: Yes Assistive Devices: None Review of Systems Review of Systems: 10 system review negative except for stated as above Physical Exam Constitutional: WD/WN, vitals as above Cardiovascular: RRR, no murmur, no edema Gastrointestinal (Abdomen): normal bowel sounds, soft, nontender, no hepatosplenomegaly Results & Data Vital Signs (Past 12 Hours) Vital Signs Temp Pulse Pulse Pulse Resp BP BP 03/28/23 07:53 36.8 C 67 18 112/73 03/28/23 07:18 73 17 105/58 L 03/28/23 06:23 36.7 C 76 16 111/63 03/28/23 06:08 36.7 C 67 16 103/63 03/28/23 05:52 36.7 C 70 17 100/64 03/28/23 05:30 36.7 C 66 18 92/53 L 03/28/23 05:00 36.6 C 70 18 94/55 L 03/28/23 04:30 73 17 101/62 03/28/23 04:00 36.7 C 67 16 89/53 L 03/28/23 03:30 36.7 C 66 16 96/48 L 03/28/23 03:15 36.7 C 70 16 104/70 03/28/23 03:08 36.6 C 77 16 126/65 03/28/23 02:56 36.7 C 67 16 107/54 L 03/28/23 00:59 67 67 16 111/63 03/27/23 22:38 36.7 C 70 18 106/68 Pulse Ox O2 Del Method 03/28/23 07:53 95 03/28/23 07:18 03/28/23 06:23 96 03/28/23 06:08 95 03/28/23 05:52 95 03/28/23 05:30 95 03/28/23 05:00 94 03/28/23 04:30 95 03/28/23 04:00 95 03/28/23 03:30 95 03/28/23 03:15 97 03/28/23 03:08 98 03/28/23 02:56 96 03/28/23 00:59 03/27/23 22:38 94 Room Air
[2023-03-28] MEDS ORDERED: LABETALOL HCL IV 5 MG/ML 20ML IV PRN (09:34)
[2023-03-28] MEDS ORDERED: ePHEDrine sulfate 50 MG/ML AMP IV PRN (09:34)
[2023-03-28] MEDS ORDERED: fentaNYL citrate PF 100 MCG/2 ML VIAL IV PRN (09:34)
[2023-03-28] MEDS ORDERED: FLUMAZENIL 0.1 MG/1 ML 10 ML VIAL IV PRN (09:34)
[2023-03-28] MEDS ORDERED: PROMETHAZINE HCL 12.5 MG in SODIUM CHLORIDE 0.9% 50 ML IV PRN (09:34)
[2023-03-28] MEDS ORDERED: ATROPINE SULFATE 0.1 MG/ML 10ML SYR IV PRN (09:34)
[2023-03-28] MEDS ORDERED: NALOXONE HCL 0.4 MG/1 ML VIAL/CARP IV PRN (09:34)
[2023-03-28] MEDS ORDERED: PROPOFOL IV EMULSION 10 MG/ML 20 ML VIAL IV ONE (09:55)
[2023-03-28] MEDS ORDERED: PHENYLEPHRINE HCL 10 MG/ML VIAL ONE (09:55)
[2023-03-28] MEDS ORDERED: ONDANSETRON INJ 2 MG/ML 2 ML VIAL ONE (09:55)
[2023-03-28] MEDS ORDERED: SUCCINYLCHOLINE CHLORIDE 20 MG/ML 10 ML VIAL IV ONE (09:55)
[2023-03-28] MEDS ORDERED: LIDOCAINE 2% 2 ML VIAL/AMP(20MG/ML) INFIL ONE (09:55)
--- NOTE | 2023-03-28 10:07 | GI REPORT ---
Patient Name: Bhargavi Kim Procedure Date: 03/28/2023 9:44 AM Date of : 1960 Admit Type: Inpatient Age: 62 Gender: Female Attending MD: Anil Wakefield MD, Procedure: Upper GI endoscopy Providers: Anil Wakefield MD Referring MD: Cristhian Sharma Md Indications: Hematochezia Medicines: General Anesthesia Complications: No immediate complications. Estimated blood loss: None. Estimated Blood Loss: Estimated blood loss: none. Procedure: Pre-Anesthesia Assessment: - Pre-Anesthesia Assessment: - Prior to the procedure, a History and Physical was performed, and patient medications, allergies and sensitivities were reviewed. The patient's tolerance of previous anesthesia was reviewed. Please see [employer] for complete details. - The risks and benefits of the procedure and the sedation options and risks were discussed with the patient. All questions were answered and informed consent was obtained. - Patient identification and proposed procedure were verified prior to the procedure by the physician and the nurse. The procedure was verified in the pre-procedure area in the procedure room. After obtaining informed consent, the endoscope was passed carefully and meticuously under direct vision and only advanced when the lumen was clearly identified, C02 insuflation was utilized throughout the entirity of the procedure. Throughout the procedure, the patient's blood pressure, pulse, and oxygen saturations were monitored continuously. After obtaining informed consent, the endoscope was passed under direct vision. Throughout the procedure, the patient's blood pressure, pulse, and oxygen saturations were monitored continuously. The Endoscope was introduced through the mouth, and advanced to the second part of duodenum. The upper GI endoscopy was accomplished without difficulty. The patient tolerated the procedure well. Findings: A hiatal hernia was present. The entire examined stomach was normal. Bilious fluid was found in the entire examined stomach. The examined duodenum was normal. Impression: - Hiatal hernia. - Normal stomach. - Bilious gastric fluid. - Normal examined duodenum. - No specimens collected. Recommendation: - [facility] patient [facility] for [facility] care. - No evidence of upper GI bleeding - CTA today, lower or small bowel etiology - IV BID PPI - NPO until CTA Anil Wakefield MD 03/28/2023 10:06:19 AM This report has been signed electronically. Note Initiated On: 03/28/2023 9:44 AM Number of Addenda: 0 I attest to the content of the Intraoperative Record and orders documented therein, exceptions below {[id number]}
--- NOTE | 2023-03-28 10:51 | Anesthesiology Progress Note ---
Date of Service March 28, 2023 Anesthesia Post Procedure Vital Signs Vital Signs: Temp Pulse Pulse Pulse Pulse Resp BP 03/28/23 10:45 36.6 C 67 18 03/28/23 10:35 66 17 03/28/23 10:25 67 19 03/28/23 10:15 62 14 03/28/23 10:09 36.6 C 66 19 03/28/23 07:53 36.8 C 67 18 112/73 03/28/23 07:18 73 17 105/58 L 03/28/23 06:23 36.7 C 76 16 111/63 03/28/23 06:08 36.7 C 67 16 103/63 03/28/23 05:52 36.7 C 70 17 100/64 03/28/23 05:30 36.7 C 66 18 92/53 L 03/28/23 05:00 36.6 C 70 18 94/55 L 03/28/23 04:30 73 17 101/62 03/28/23 04:00 36.7 C 67 16 89/53 L 03/28/23 03:30 36.7 C 66 16 96/48 L 03/28/23 03:15 36.7 C 70 16 104/70 03/28/23 03:08 36.6 C 77 16 126/65 03/28/23 02:56 36.7 C 67 16 107/54 L 03/28/23 00:59 67 67 16 03/27/23 20:10 36.8 C 78 18 03/27/23 22:38 36.7 C 70 18 03/27/23 20:00 36.8 C 78 18 03/27/23 19:40 37.1 C 66 18 122/64 03/27/23 18:30 37.2 C 69 18 115/58 L 03/27/23 18:03 72 03/27/23 17:55 37.3 C 74 18 104/48 L 03/27/23 17:25 36.7 C 71 18 124/70 03/27/23 17:10 36.7 C 74 18 115/72 03/27/23 16:57 36.7 C 70 18 115/72 03/27/23 16:03 37.2 C 68 18 118/63 03/27/23 15:47 71 03/27/23 15:30 76 17 03/27/23 15:30 102/61 03/27/23 15:15 69 15 03/27/23 15:15 97/60 L 03/27/23 15:04 68 18 03/27/23 15:04 103/60 03/27/23 15:01 111/79 03/27/23 15:01 74 16 03/27/23 15:00 80 16 03/27/23 15:03 36.5 C 69 18 103/60 03/27/23 14:33 37.2 C 72 18 91/64 L 03/27/23 14:18 37.1 C 75 16 112/62 03/27/23 14:06 03/27/23 13:58 37 C 76 18 90/51 L 03/27/23 12:30 74 16 91/54 L 03/27/23 11:00 73 16 110/71 BP BP Pulse Ox O2 Del Method O2 Flow Rate 03/28/23 10:45 127/75 97 Room Air 03/28/23 10:35 118/74 97 Room Air 03/28/23 10:25 139/63 96 Room Air 03/28/23 10:15 124/72 100 Oxymask 4 03/28/23 10:09 113/74 97 Oxymask 6 03/28/23 07:53 95 03/28/23 07:18 03/28/23 06:23 96 03/28/23 06:08 95 03/28/23 05:52 95 03/28/23 05:30 95 03/28/23 05:00 94 03/28/23 04:30 95 03/28/23 04:00 95 03/28/23 03:30 95 03/28/23 03:15 97 03/28/23 03:08 98 03/28/23 02:56 96 03/28/23 00:59 111/63 03/27/23 20:10 126/83 99 Room Air 03/27/23 22:38 106/68 94 Room Air 03/27/23 20:00 126/83 99 Room Air 03/27/23 19:40 97 03/27/23 18:30 97 03/27/23 18:03 03/27/23 17:55 97 03/27/23 17:25 100 03/27/23 17:10 100 03/27/23 16:57 100 03/27/23 16:03 100 03/27/23 15:47 03/27/23 15:30 94 03/27/23 15:30 03/27/23 15:15 98 03/27/23 15:15 03/27/23 15:04 100 03/27/23 15:04 03/27/23 15:01 03/27/23 15:01 99 03/27/23 15:00 85 L 03/27/23 15:03 100 03/27/23 14:33 100 03/27/23 14:18 100 03/27/23 14:06 99 Room Air 03/27/23 13:58 97 03/27/23 12:30 99 03/27/23 11:00 97 Transfer of Care Handoff Completed per policy Notes Mental Status: alert / awake / arousable Patient Amnestic to Procedure: Yes Nausea / Vomiting: adequately controlled Pain: adequately controlled Airway Patency, RR, SpO2: stable & adequate BP & HR: stable & adequate Hydration State: stable & adequate Anesthetic Complications: no major complications apparent
[2023-03-28] MEDS ORDERED: OPTIRAY 320 125ml IV ONE (11:45)
[2023-03-28 11:46] LABS: Hematocrit (blood only) 28.7 % (37.0-47.0); Hemoglobin 10.1 g/dl (12.0-16.0); Mean Corpuscular Hemoglobin 30.8 pg (25.0-34.0); Mean Corpuscular Hgb Conc 35.2 g/dL (32.0-36.0); Mean Corpuscular Volume 87.5 fL (80.0-100.0); Platelet Count 121 K/uL (130-400); RDW Coefficient of Variation 15.8 % (11.5-14.5); RDW Standard Deviation 50.1 fL (36.4-46.3); Red Blood Count 3.28 M/uL (4.20-5.40); White Blood Count 4.03 K/ul (4.8-10.8)
[2023-03-28 11:54] LABS: BUN Creatinine Ratio 14.3 (10-20); Calcium 8.3 mg/dl (8.6-10.3); Creatinine Clr Calc Pharmacy 82.4 ml/min; Est GFR (African American) 115.8 ml/min; Est GFR (Non-African American) 99.9 ml/min; Potassium 3.8 mmol/L (3.5-5.1)
--- NOTE | 2023-03-28 12:28 | CT Scan Report ---
CT ANGIOGRAM OF THE ABDOMEN AND PELVIS CLINICAL HISTORY: GI bleeding. COMPARISON STUDY: Abdominal CT dated 03/27/2023. TECHNIQUE: Following the IV administration of 120 cc of Optiray 320, CT angiogram of the abdomen and pelvis was performed from the lung bases the proximal femora. Images are reviewed in the axial, sagit dinora, and coronal planes. 3-D MIPS images are created and assessed. IV contrast was administered witho ut complication. A dose lowering technique was utilized adhering to the principles of ALARA. CT DOSE: 516.91 mGy.cm FINDINGS: Lower chest: The heart is normal in size and without pericardial effusion. There are trace pleural ef fusions with dependent atelectasis. Liver: The contrast-enhanced liver is normal in size, contour, and attenuation. There is no intrahepa tic biliary ductal dilatation. The main portal veins appear patent. Gallbladder: Vicarious excreted contrast is noted in the gallbladder. The gallbladder is otherwise no rmal in appearance. Spleen: Normal in size and attenuation noting heterogeneous arterial phase enhancement. Pancreas: Unremarkable. Adrenal glands: Unremarkable. Kidneys: The contrast enhanced kidneys are normal in size and without hydronephrosis. The kidneys enh ance symmetrically. Abdominal aorta and iliac arteries: The abdominal aorta is normal in course and caliber. No aortic di ssection is identified. The iliac arteries are widely patent bilaterally. A focal dissection is seen within the right external iliac artery on axial image #264. Major branches of the abdominal aorta: The celiac trunk, superior mesenteric, and inferior mesenteric arteries are widely patent. There is a replaced hepatic artery which arises from the superior mesent nalini artery. The hepatic and splenic arteries are patent . Single bilateral renal arteries are widely patent. Bowel: There is mild colonic diverticulosis without CT evidence of acute diverticulitis. No bowel obs truction is seen. The appendix is well-visualized and normal. There is no evidence of contrast extra vasation within the bowel. Question trace intraluminal contrast involving a loop of jejunum in the le ft mid abdomen. This is best seen on axial images #149 and #163. This is at the site of inflammation suggested on yesterday's examination. Inflammatory change appears improved from previous. No addition al foci of intramural contrast are suggested throughout the small bowel or colon. Peritoneum: There is trace perihepatic and pelvic ascites. No intraperitoneal free air is seen. Lymphadenopathy: None. Pelvic viscera: The bladder is normal as visualized. The uterus is surgically absent. No adnexal lesi on is seen. Skeletal structures: The skeletal structures are osteopenic. There is moderate lumbosacral spondylosi s. No destructive bony lesions are seen. Soft tissues: There is mild body wall edema. IMPRESSION: 1. Unremarkable CT angiogram of the abdominal aorta and its major branches. 2. There is a focal dissection within the right external iliac artery. 3. Question trace intraluminal contrast involving a loop of jejunum in the left lateral mid abdomen. This is at the site of inflammation suggested on yesterday's examination, and a small focus of active GI bleeding is not excluded. 4. Trace pleural effusions. 5. Trace perihepatic and pelvic ascites. 6. Additional findings as above. Findings were discussed with Dr. Wakefield at the time of interpretation. ACT 112: Negative or not required by law. Electronically signed by: Nalini Moreno M.D. 03/28/2023 12:26 PM
[2023-03-28 13:01] LABS: Hematocrit (blood only) 28.4 % (37.0-47.0); Hemoglobin 10.1 g/dl (12.0-16.0)
--- NOTE | 2023-03-28 13:09 | Electrocardiogram Report ---
Test Reason : Blood Pressure : / mmHG Vent. Rate : 069 BPM Atrial Rate : 069 BPM P-R Int : 170 ms QRS Dur : 086 ms QT Int : 448 ms P-R-T Axes : 059 046 040 degrees QTc Int : 480 ms Normal sinus rhythm Normal ECG No previous ECGs available Confirmed by Sg Haywood ([id number]) on 03/28/2023 1:09:13 PM Referred By: REFERRED SELF Confirmed By:Sg Haywood
--- NOTE | 2023-03-28 13:14 | Communication Note ---
Date of Service: March 28, 2023 Patient had a normal EGD today, postprocedural CTA was explored and performed. Has an area of inflammation yesterday that seemingly has a blush of potential active extravasation into the jejunum. Given her need for transfusion of 4 units of blood, concern for small bowel bleed I called interventional radiology in [place] and they have recommended transfer, I have called and they have accepted her in transfer for continued evaluation of a potential small bowel bleed.
--- NOTE | 2023-03-28 13:56 | Discharge Summary ---
Date of Service March 28, 2023 Admission HPI Per Admitting Provider Bhargavi Kim is a 62 year old female who presents to the ER with melena and bright red blood in stool. This start on Thursday after eating with associated lightheadedness. Ongoing mix of blood but mostly tarry stool since then. No chest pain or shortness of breath. No prior GI bleed in the past. Takes an aspirin daily for history of aneurysms. No NSAID use. No history of heartburn, reflux or gastritis. No prior colonoscopy or EGD. Prior Cologuard was negative. Principal Diagnosis Acute jejunal bleed Incidental right external iliac artery dissection Discharge Exam Constitutional WD/WN, vitals as above (appears less pale than on admission) Respiratory normal respiratory effort, lungs clear to auscultation Cardiovascular Rate/Rhythm: regular rate and regular rhythm Heart Sounds: + murmur (LLSB 2/6 systolic) Vessels: posterior tibial pulses present and dorsalis pedis pulses present Extremities: normal capillary refill; no calf tenderness and no pedal edema Gastrointestinal (Abdomen) normal bowel sounds, soft, nontender, no hepatosplenomegaly Discharge Data Allergies Allergy/AdvReac Type Severity Reaction Status Date / Time gluten Allergy Intermediate Gastrointestinal Unverified 03/27/23 14:57 Upset Consultations 03/27/23 14:17 ED Decision to Admit Stat 03/27/23 15:49 Consult Gastroenterology Routine Procedures Performed Operation Date: 03/28/23 08:35 Actual Procedures p Esophagogastroduodenoscopy(Not Applicable) - Anil Wakefield MD Ordered Studies 03/27/23 10:56 CT abd pelvis IV con only Stat CT DOSE: 446.17 mGy.cm HISTORY: Acute generalized abdominal pain with nausea and vomiting abd pain n/v/d. melena TECHNIQUE: Multiaxial CT images of the abdomen and pelvis were performed following the IV administration of 94 cc of Optiray, A dose lowering technique was utilized adhering to the principles of ALARA. COMPARISON STUDY: None. FINDINGS: The imaged inferior cardiac chambers are unremarkable. Mild dependent subsegmental bibasilar atelectasis. No pneumatosis or pneumoperitoneum. Unre markable spleen, visualized pancreas and adrenal glands. Distended gallbladder. Unremarkable liver. There are a few subcentimeter unremarkable kidneys. No hydronephrosis. Decompressed urinary bladder with mild wall thickening. Hysterectomy. No adnexal mass lesion identified. No abdominal aortic aneurysm or lymphadenopathy. Hypodensities of the liver too small to characterize favoring cysts. Patency of the hepatic and portal veins. Colonic diverticulosis. Normal appendix. Mild circumferential wall thickening involves a few loops of small bowel in the abdominal left upper quadrant. There is adjacent inflammatory stranding with interloop edema. Mild wall thickening of the ascending colon. No drainable fluid collections. Mild generalized body wall edema. Degenerative changes of the spine, pelvis and hips. IMPRESSION: 1. No bowel obstruction or pneumoperitoneum. 2. Wall thickening involves a few loops of jejunum within the left abdomen. Mild associated interloop edema with perienteric stranding. Findings are suggestive of a nonspecific enteritis. 3. Mild wall thickening of the ascending colon may be secondary to partial distention versus a concomitant mild colitis. 4. Colonic diverticulosis. 5. Additional findings as above. 03/28/23 10:41 CT angio abdomen pelvis w con Urgent CLINICAL HISTORY: GI bleeding. COMPARISON STUDY: Abdominal CT dated 03/27/2023. TECHNIQUE: Following the IV administration of 120 cc of Optiray 320, CT angiogram of the abdomen and pelvis was performed from the lung bases the proximal femora. Images are reviewed in the axial, sagittal, and coronal planes. 3-D MIPS images are created and assessed. IV contrast was administered without complication. A dose lowering technique was utilized adhering to the principles of ALARA. CT DOSE: 516.91 mGy.cm FINDINGS: Lower chest: The heart is normal in size and without pericardial effusion. There are trace pleural effusions with dependent atelectasis. Liver: The contrast-enhanced liver is normal in size, contour, and attenuation. There is no intrahepatic biliary ductal dilatation. The main portal veins appear patent. Gallbladder: Vicarious excreted contrast is noted in the gallbladder. The gallbladder is otherwise normal in appearance. Spleen: Normal in size and attenuation noting heterogeneous arterial phase enhancement. Pancreas: Unremarkable. Adrenal glands: Unremarkable. Kidneys: The contrast enhanced kidneys are normal in size and without hydronephrosis. The kidneys enhance symmetrically. Abdominal aorta and iliac arteries: The abdominal aorta is normal in course and caliber. No aortic dissection is identified. The iliac arteries are widely patent bilaterally. A focal dissection is seen within the right external iliac artery on axial image #264. Major branches of the abdominal aorta: The celiac trunk, superior mesenteric, and inferior mesenteric arteries are widely patent. There is a replaced hepatic artery which arises from the superior mesenteric artery. The hepatic and splenic arteries are patent . Single bilateral renal arteries are widely patent. Bowel: There is mild colonic diverticulosis without CT evidence of acute diverticulitis. No bowel obstruction is seen. The appendix is well-visualized and normal. There is no evidence of contrast extravasation within the bowel. Question trace intraluminal contrast involving a loop of jejunum in the left mid abdomen. This is best seen on axial images #149 and #163. This is at the site of inflammation suggested on yesterday's examination. Inflammatory change appears improved from previous. No additional foci of intramural contrast are suggested throughout the small bowel or colon. Peritoneum: There is trace perihepatic and pelvic ascites. No intraperitoneal free air is seen. Lymphadenopathy: None. Pelvic viscera: The bladder is normal as visualized. The uterus is surgically absent. No adnexal lesion is seen. Skeletal structures: The skeletal structures are osteopenic. There is moderate lumbosacral spondylosis. No destructive bony lesions are seen. Soft tissues: There is mild body wall edema. IMPRESSION: 1. Unremarkable CT angiogram of the abdominal aorta and its major branches. 2. There is a focal dissection within the right external iliac artery. 3. Question trace intraluminal contrast involving a loop of jejunum in the left lateral mid abdomen. This is at the site of inflammation suggested on yesterday's examination, and a small focus of active GI bleeding is not excluded. 4. Trace pleural effusions. 5. Trace perihepatic and pelvic ascites. 6. Additional findings as above. Findings were discussed with Dr. Wakefield at the time of interpretation. ACT 112: Negative or not required by law. Electronically signed by: Simone Moreno M.D. 03/28/2023 12:26 PM Hospital Course (1) Acute GI bleeding: Bhargavi Kim is a 62 year old female admitted to [facility] from March 27 - 2022 due to melena. Fecal occult positive in the ER. Hemoglobin 6.6 (previously 13.9 in 2019). No prior history of GI bleed or NSAID use. Appears to have been triggered by [place] food. Initial CT A/P with IV contrast concerning for wall thickening of jejunum suggestive of non specific enteritis and mild wall thickening of the ascending colon secondary to partial distention vs. concomitant mild colitis. She was started on a pantoprazole IV 80mg bolus and 8mg/hr drip. She was transfused 2 units packed RBCs with repeat hemoglobin 7.8 following this. This subsequently dropped to 7.1 6 hours later and she was transfused an additional 2 units overnight. Repeat hemoglobin following this was 10.1 (03/28/23 11:20). She underwent EGD by Dr Wakefield on March 28 showing hiatal hernia with normal esophagus, stomach and duodenum. Subsequent CT angiogram showed trace intraluminal contrast involving loop of jejunum at the site of inflammation suggested on yesterdays scan. This was discussed with interventional radiology at [facility] and she has been accepted for transfer. Also noted on CT angiogram a focal dissection within the right external iliac artery, effectively an incidental finding - suspect this is from her cerebral angiogram in 2021, right posterior tibial and dorsalis pedis pulses are easily palpable. Advised to discuss further with vascular surgery at [place] regarding this. Informed the transfer Center of this incidental finding. (2) Acute blood loss anemia: HGB 10.1 s/p 4 units packed RBCs. Continue to monitor q6h while awaiting transfer (3) Systolic murmur: LLSB systolic 2/6 Follow up with PCP once no longer acutely unwell - consider TTE if still present on follow up (4) Iliac artery dissection: Total Time Total Time Spent Total Time Spent (In Minutes): 40 Discharge Plan Discharge Items Patient Disposition: Transfer Acute Care Hospital Reason For Visit: ACUTE GI BLEED Discharge Diagnosis: Acute jejunal bleed Incidental right external iliac artery dissection Activity: Resume your previous activity Non-emergency contact: Primary Care Provider Call non-emergency contact if: you have any medication questions and your symptoms worsen Follow-up/Referrals: Mamadou Welsh MD [Primary Care Provider] - Diet: Nothing by Mouth Addtl Attending Provider Instructions: Bhargavi Kim is a 62 year old female admitted to [facility] from March 27 - 2022 due to melena. Fecal occult positive in the ER. Hemoglobin 6.6 (previously 13.9 in 2019). No prior history of GI bleed or NSAID use. Appears to have been triggered by [place] food. Initial CT A/P with IV contrast concerning for wall thickening of jejunum suggestive of non specific enteritis and mild wall thickening of the ascending colon secondary to partial distention vs. concomitant mild colitis. She was started on a pantoprazole IV 80mg bolus and 8mg/hr drip. She was transfused 2 units packed RBCs with repeat hemoglobin 7.8 following this. This subsequently dropped to 7.1 6 hours later and she was transfused an additional 2 units overnight. Repeat hemoglobin following this was 10.1 (03/28/23 11:20). She underwent EGD by Dr Wakefield on March 28 showing hiatal hernia with normal esophagus, stomach and duodenum. Subsequent CT angiogram showed trace intraluminal contrast involving loop of jejunum at the site of inflammation suggested on yesterdays scan. This was discussed with interventional radiology at [facility] and she has been accepted for transfer. Also noted on CT angiogram a focal dissection within the right external iliac artery, effectively an incidental finding - suspect this is from her cerebral angiogram in 2021, right posterior tibial and dorsalis pedis pulses are easily palpable. Advised to discuss further with vascular surgery at [place] regarding this. Informed the transfer Center of this incidental finding. Pending Studies at Discharge: No Stand-Alone Forms: [facility] Skilled Items Patient informed of condition?: Yes DNR: No Discharge Level of Care: Other Communicable Disease: No Discharge Prognosis: Stable Lines: None and Peripheral IV Urinary Catheter: No Medications and DC Order Prescriptions: Continued escitalopram oxalate [Lexapro] 10 mg tablet 10 mg PO HS Discontinued aspirin 81 mg Tablet 81 mg PO HS Discharge Orders: Discharge Order (Routine); Ordered 03/28/23 Ordered By: Cristhian Sharma Admission Data Admit Date/Time: 03/27/23 15:12 Attending Provider: Cristhian Sharma Admit Provider: Cristhian Sharma Primary Care Provider: Mamadou Welsh Other Providers: Cristhian Sharma ; Anil Wakefield Coding Level of Care Code 56855 INP/OBS DISCH >30 MIN Diagnoses Acute GI bleeding K92.2 Acute blood loss anemia D62 Systolic murmur R01.1 Iliac artery dissection I77.72
[2023-03-28 18:43] LABS: Hematocrit (blood only) 28.8 % (37.0-47.0); Hemoglobin 10.3 g/dl (12.0-16.0)
--- NOTE | 2023-03-30 14:21 | Coding Query ---
CODING QUERY To promote full compliance with coding requirements relating to patient care, provider participation is requested in all cases of health information coder uncertainty. Please assist us with the question(s) below: Coding Question(s): Acute jejunal bleed is documented and the Discharge Summary documents, "Acute GI bleeding: Bhargavi Kim is a 62 year old female admitted to [facility] from March 27 - 2022 due to melena. Fecal occult positive in the ER. Hemoglobin 6.6 (previously 13.9 in 2019). No prior history of GI bleed or NSAID use. Appears to have been triggered by [place] food. Initial CT A/P with IV contrast concerning for wall thickening of jejunum suggestive of non specific enteritis and mild wall thickening of the ascending colon secondary to partial distention vs. concomitant mild colitis". The ER documented, "nausea, vomiting and diarrhea over the past 48 hours which she attributes to possible food poisoning". Please specify below, in your clinical opinion, regarding Acute Jejunal Bleed, appears to have triggered by [place] food: ( ) Acute Jejunal Bleed, most likely triggered by [employer]. Please specify further below: ( ) Acute Jejunal Bleed likely triggered by [employer] [employer] is most likely Food Poisoning ( ) Acute Jejunal Bleed likely triggered by [employer] is most likely Enteritis Food Hypersensitivity ( ) Acute Jejunal Bleed likely triggered by [employer] is most likely Other: Please Specify ( ) Acute Jejunal Bleed likely triggered by [place] [employer] is unspecified diagnosis regarding the food trigger ( X ) Acute Jejunal Bleed is most likely due to Other: Please Specify unknown Physician's Response(s): Thank you Radha Maya Principal Diagnosis: "that condition established after study, to be chiefly responsible for occasioning the admission of the patient to the hospital for care." Co-Existing Principal Diagnosis: "when two or more diagnoses equally meet the criteria for principal diagnosis as determined by the circumstances of admission, diagnostic work up, and/or therapy provided, and the Alphabetic Index, Tabular List, or another coding guideline does not provide sequencing direction, any one of the diagnoses may be sequenced first." "When the physician has documented what appears to be a current diagnosis in the body of the record, but has not included the diagnosis in the final diagnostic statement, the physician should be asked whether the diagnosis should be added." (Source Coding Clinic 2 QTR90. p3-4) ANAHI
--- NOTE | 2023-03-30 14:37 | Coding Query ---
CODING QUERY To promote full compliance with coding requirements relating to patient care, provider participation is requested in all cases of press operator meat uncertainty. Please assist us with the question(s) below: Coding Question(s): The Progress Notes and the Discharge Summary document, " Incidental right external iliac artery dissection", and the Discharge Summary documents, "Also noted on CT angiogram a focal dissection within the right external iliac artery, effectively an incidental finding - suspect this is from her cerebral angiogram in 2021, right posterior tibial and dorsalis pedis pulses are easily palpable. Advised to discuss further with vascular surgery at [place] regarding this. Informed the transfer Center of this incidental finding". Please specify below, in your clinical opinion, regarding the Iliac Artery Dissection: ( X) Iliac Artery Dissection was monitored during the admission and is to be followed up on at [place] ( ) Iliac Artery Dissection is Not a significant diagnosis and was not monitored during the admission and is not for follow up ( ) Other: Please Specify Physician's Response(s): Not suspected to be acute finding Thank you Radha Maya Principal Diagnosis: "that condition established after study, to be chiefly responsible for occasioning the admission of the patient to the hospital for care." Co-Existing Principal Diagnosis: "when two or more diagnoses equally meet the criteria for principal diagnosis as determined by the circumstances of admission, diagnostic work up, and/or therapy provided, and the Alphabetic Index, Tabular List, or another coding guideline does not provide sequencing direction, any one of the diagnoses may be sequenced first." "When the physician has documented what appears to be a current diagnosis in the body of the record, but has not included the diagnosis in the final diagnostic statement, the physician should be asked whether the diagnosis should be added." (Source Coding Clinic 2 QTR90. p3-4) ANAHI
== END 2023-03-28 20:16 | disposition short-term general hospital (02) | DRG 377 ==
LOC: ED 09:44 → SUATTDRO 15:12 → EDINP 15:12 → 2S 19:01